=== PATIENT | female | born 1995 | race Caucasian/White ===

== ENCOUNTER 2016-12-03 14:13 | Emergency (ER) | payer OTHER ==
[2016-12-03 14:36] VITALS: BMI 32.1
[2016-12-03] MEDS ORDERED: ONDANSETRON 4 MG/2 ML VIAL IVPB ONE (16:12)
[2016-12-03] MEDS ORDERED: morphine CARPU-JECT 4 MG/1 ML DISP.SYRIN IVPUSH ONE (16:12)
[2016-12-03] MEDS ORDERED: SODIUM CHLORIDE 1,000 ML IV STA (16:12)
--- NOTE | 2016-12-03 16:47 | PDOC ---
History of Present Illness - General History Source: Patient Exam Limitations: No Limitations - History of Present Illness Initial Comments: 12/03/16 16:50 The patient is a 21 year old female, with a significant past medical history of asthma, who presents to the emergency department with abdominal pain, nausea and vomit since this morning. She describes her abdominal pain as localized on the right lower quadrant, without radiation or modifying factors. She notes that she has had 2 episodes of vomit that have been nonbloody and nonbilious. She denies any vaginal bleeding or discharge. She states that she is sexually active with her child's father. She denies history of sexual transmitted diseases. The patient denies chest pain, shortness of breath, headache and dizziness. Denies fever, chills, nausea, vomit, diarrhea and constipation. Denies dysuria, frequency, urgency and hematuria. LMP: Last week Allergies: Walnuts and Almonds Past surgical history: Social history: No alcohol, tobacco or drug use reported <Francisco Javier Keating - Last Filed: 12/03/16 16:49> <Sharona Jones - Last Filed: 12/03/16 21:08> - General History Source: Patient Exam Limitations: No Limitations <Shad Perez - Last Filed: 12/21/16 08:13> - General Chief Complaint: Pain Stated Complaint: ABD PAIN, VOMITING Time Seen by Provider: 12/03/16 15:48 Past History <Francisco Javier Keating - Last Filed: 12/03/16 16:49> <Sharona Jones - Last Filed: 12/03/16 21:08> - Past Medical History Asthma: Yes Cancer: No Cardiac Disorders: No Diabetes: No HTN: No Suicide Attempt (Hx): No Seizures: No Thyroid Disease: No - Reproductive History (#): 1 Para: 0 - Immunization History Immunization Up to Date: No - Psycho/Social/Smoking Cessation Hx Anxiety: No Suicidal Ideation: No Smoking Status: No (DENIES) Smoking History: Never smoked Have you smoked in the past 12 months: No Number of Cigarettes Smoked Daily: 0 Information on smoking cessation initiated: No Hx Alcohol Use: No Drug/Substance Use Hx: No Substance Use Type: None Hx Substance Use Treatment: No <Shad Perez - Last Filed: 12/21/16 08:13> - Past Medical History Allergies/Adverse Reactions: Allergies Allergy/AdvReac Type Severity Reaction Status Date / Time No Known Drug Allergies Allergy Verified 12/03/16 14:32 walnut Allergy Verified 12/03/16 14:32 almonds Allergy Uncoded 12/03/16 14:32 Home Medications: Ambulatory Orders Albuterol Sulfate Inhaler - [Ventolin Hfa Inhaler -] 1 puff IH PRN 12/03/16 Albuterol Sulfate [Proair Respiclick] 1 inh IH PRN 12/03/16 Budesonide/Formeterol Fumarate [SYMBICORT 80/4.5mcg -] 1 puff IH PRN 12/03/16 Fluticasone Prop 0.05% Nasal [Flonase -] 1 spray NS PRN 12/03/16 Ibuprofen 800 mg PO TID #30 tablet 12/03/16 Montelukast Na [Singulair -] 10 mg PO HS 12/03/16 Ondansetron [Zofran *Odt*] 4 mg SL TID #30 od.tablet 12/03/16 Review of Systems - Review of Systems Able to Perform ROS?: Yes Comments:: 12/03/16 16:50 GENERAL/CONSTITUTIONAL: No fever or chills. No weakness. HEAD, EYES, EARS, NOSE AND THROAT: No change in vision. No ear pain or discharge. No sore throat. CARDIOVASCULAR: No chest pain or shortness of breath RESPIRATORY: No cough, wheezing, or hemoptysis. GASTROINTESTINAL: (+) Abdominal pain, nausea, vomiting. No diarrhea or constipation. GENITOURINARY: No dysuria, frequency, or change in urination. MUSCULOSKELETAL: No joint or muscle swelling or pain. No neck or back pain. SKIN: No rash NEUROLOGIC: No headache, vertigo, loss of consciousness, or change in strength/ sensation. ENDOCRINE: No increased thirst. No abnormal weight change HEMATOLOGIC/LYMPHATIC: No anemia, easy bleeding, or history of blood clots. ALLERGIC/IMMUNOLOGIC: No hives or skin allergy. <Francisco Javier Keating - Last Filed: 12/03/16 16:49> *Physical Exam - Vital Signs Last Vital Signs Temp Pulse Resp BP Pulse Ox 99.5 F 97 H 18 135/87 100 12/03/16 14:32 12/03/16 14:32 12/03/16 14:32 12/03/16 14:32 12/03/16 14:32 - Physical Exam Comments: 12/03/16 16:50 GENERAL: Awake, alert, and fully oriented, in no acute distress HEAD: No signs of trauma, normocephalic, atraumatic EYES: PERRLA, EOMI, sclera anicteric, conjunctiva clear ENT: Auricles normal inspection, hearing grossly normal, nares patent, oropharynx clear without exudates. Moist mucosa NECK: Normal ROM, supple, no lymphadenopathy, JVD, or masses LUNGS: No distress, speaks full sentences, clear to auscultation bilaterally HEART: Regular rate and rhythm, normal S1 and S2, no murmurs, rubs or gallops, peripheral pulses normal and equal bilaterally. ABDOMEN: (+) Right lower quadrant tenderness to palpation. Soft, normoactive bowel sounds. No guarding, no rebound. No masses EXTREMITIES: Normal inspection, Normal range of motion, no edema. No clubbing or cyanosis. NEUROLOGICAL: Cranial nerves II through XII grossly intact. Normal speech, normal gait, no focal sensorimotor deficits SKIN: Warm, Dry, normal turgor, no rashes or lesions noted. <Francisco Javier Keating - Last Filed: 12/03/16 16:49> - Vital Signs Last Vital Signs Temp Pulse Resp BP Pulse Ox 99.5 F 84 24 117/70 100 12/03/16 14:32 12/03/16 18:46 12/03/16 18:46 12/03/16 18:46 12/03/16 18:46 <Sharona Jones - Last Filed: 12/03/16 21:08> - Vital Signs Last Vital Signs Temp Pulse Resp BP Pulse Ox 99.5 F 97 H 18 135/87 100 12/03/16 14:32 12/03/16 14:32 12/03/16 14:32 12/03/16 14:32 12/03/16 14:32 <Shad Perez - Last Filed: 12/21/16 08:13> Heart Score/ECG Review #1 ECG reviewed & interpreted by me at: 18:35 12/03/16 18:54 NSR 88 TWI V1-V3, III, no std/jacque, QTC 413 msec, no brugada, no HOCM, no WPW <Shad Perez - Last Filed: 12/21/16 08:13> ED Treatment Course - LABORATORY CBC & Chemistry Diagram: 12/03/16 16:00 12/03/16 16:00 <Petrona Keatinghema Schultee - Last Filed: 12/03/16 16:49> - LABORATORY CBC & Chemistry Diagram: 12/03/16 16:00 12/03/16 16:00 - ADDITIONAL ORDERS Additional order review: Laboratory Results 12/03/16 12/03/16 16:00 16:00 Sodium 138 Potassium 3.8 Chloride 102 Carbon Dioxide 25 Anion Gap 11 BUN 12 Creatinine 0.8 Creat Clearance w eGFR > 60 Random Glucose 95 Calcium 9.0 Total Bilirubin 0.7 D AST 19 ALT 22 Alkaline Phosphatase 132 H D Total Protein 7.7 Albumin 4.3 Lipase 78 Serum , Qual Negative Urine Color Ltyellow Urine Appearance Clear Urine pH 7.0 Urine Protein Negative Urine Glucose (UA) Negative Urine Ketones Negative Urine Blood Negative Urine Nitrite Negative Urine Bilirubin Negative Urine Urobilinogen Negative Ur Leukocyte Esterase Negative 12/03/16 16:00 RBC 5.23 H D MCV 79.6 L MCHC 32.0 RDW 13.2 D MPV 10.3 Neutrophils % 91.1 H D Lymphocytes % 4.5 L D Monocytes % 3.7 L Eosinophils % 0.5 Basophils % 0.2 - RADIOLOGY Radiograph Interpretation: 12/03/16 21:06 Exam: CT/ABDOMEN PELVIS CT W/O CONTR Radiologist's Impression: Findings: The visualized lung base appears unremarkable and the heart is within normal limits in size. Evaluation of the liver, spleen, pancreas, gallbladder, both adrenal glands and the left kidney appear unremarkable. The right kidney is within normal limits in size with a 3 mm nonobstructing stone in its midportion. There is no evidence of hydroureteronephrosis or ureteral stone, bilaterally. There is no evidence of small bowel obstruction. Normal-appearing terminal ileum and appendix. A few tiny nodular densities in the mesentery with mild mesenteric stranding in the mid abdomen. The colon is poorly distended. There are a few diverticula in the splenic flexure of the colon without evidence of acute diverticulitis. There is no gross wall thickening. Normal size anteverted uterus. Partially distended urinary bladder without wall thickening or intraluminal stones. Perirectal and pericecal fat is clear. There is no evidence of free air or free fluid within the abdomen and pelvis. 3.8 x 2.5 cm focal low-attenuation density in the left hemipelvis consistent with the left ovary. Right ovary is not definitely identified. Visualized osseous structures appear intact and the lumbar spine is well aligned. There is minimal central disc bulge and posterior spur formation at T10-T11 level without nerve root impingement. Impression: 3 mm nonobstructing right renal stone. A few diverticula in splenic flexure of the colon without evidence of acute diverticulitis. Normal-appearing appendix. There is mild stranding/mesenteric edema in the mid abdomen with multiple subcentimeter nodular densities consistent with vessels and subcentimeter lymph nodes. There are a few prominent right lower quadrant mesenteric lymph nodes measuring up to 1.4 x 0.9 cm. Findings are suggestive of mesenteric adenitis. Correlate clinically and follow-up is needed. - Medications Given in the ED: ED Medications Discontinued Medications Generic Name Dose Route Start Last Admin Trade Name Freq PRN Reason Stop Dose Admin Sodium Chloride 1,000 mls @ 1,000 mls/hr 12/03/16 16:12 12/03/16 16:44 Normal Saline - IV 12/03/16 17:11 1,000 mls/hr ASDIR STA Administration Morphine Sulfate 4 mg 12/03/16 16:12 12/03/16 17:18 Morphine Injection - IVPUSH 12/03/16 16:13 4 mg ONCE ONE Administration Ondansetron HCl 4 mg 12/03/16 16:12 12/03/16 17:18 Zofran Injection IVPB 12/03/16 16:13 4 mg ONCE ONE Administration <Sharona Jones - Last Filed: 12/03/16 21:08> - LABORATORY CBC & Chemistry Diagram: 12/03/16 16:00 12/03/16 16:00 - RADIOLOGY Radiology Studies Ordered: Category Date Time Status ABDOMEN & PELVIS CT WITH CONTR [CT] Stat CT Scan 12/03/16 16:11 Ordered <Shad Perez - Last Filed: 12/21/16 08:13> Medical Decision Making - Medical Decision Making 12/03/16 16:45 A portion of this note was documented by scribe services under my direction. I have reviewed the details of the note, within reason, and agree with the documentation with the following case summary and management plan written by me. Patient treated in the ED. Nursing notes are reviewed and incorporated into the medical decision-making. Vital signs reviewed. Peripheral IV access obtained by the nurse, laboratory studies are drawn and sent, reviewed and interpreted by myself. Vital Signs Temp Pulse Resp BP Pulse Ox 99.5 F 97 H 18 135/87 100 12/03/16 14:32 12/03/16 14:32 12/03/16 14:32 12/03/16 14:32 12/03/16 14:32 21-year-old female with history of asthma resents with right lower quadrant pain. She states that she woke up with this pain and had 2 episodes of vomiting. Denies fevers, chills. Denies diarrhea. She reports that her last period was one week ago and denies any vaginal bleeding or discharge. She is sexually active with her child's father. Denies history of sexual transmitted diseases. She has a prior history of . Differential includes ruptured ovarian cyst, appendicitis. Within labs, CAT scan and pelvis. Pain control, IV fluids, reassess. 12/03/16 18:55 CBC, BMP 12/03/16 16:00 12/03/16 16:00 CMP Sodium 138 mmol/L (136-145) 12/03/16 16:00 Potassium 3.8 mmol/L (3.5-5.1) 12/03/16 16:00 Chloride 102 mmol/L (98-107) 12/03/16 16:00 Carbon Dioxide 25 mmol/L (21-32) 12/03/16 16:00 Anion Gap 11 (8-16) 12/03/16 16:00 BUN 12 mg/dL (7-18) 12/03/16 16:00 Creatinine 0.8 mg/dL (0.55-1.02) 12/03/16 16:00 Creat Clearance w eGFR > 60 (>60) 12/03/16 16:00 Random Glucose 95 mg/dL (74-106) 12/03/16 16:00 Calcium 9.0 mg/dL (8.5-10.1) 12/03/16 16:00 Total Bilirubin 0.7 mg/dL (0.2-1.0) D 12/03/16 16:00 AST 19 U/L (15-37) 12/03/16 16:00 ALT 22 U/L (12-78) 12/03/16 16:00 Alkaline Phosphatase 132 U/L (45-117) H D 12/03/16 16:00 Total Protein 7.7 g/dl (6.4-8.2) 12/03/16 16:00 Albumin 4.3 g/dl (3.4-5.0) 12/03/16 16:00 Lipase 78 U/L (73-393) 12/03/16 16:00 Serum , Qual Negative 12/03/16 16:00 Urine Test Results Urine Color Ltyellow 12/03/16 16:00 Urine Appearance Clear 12/03/16 16:00 Urine pH 7.0 (5.0-8.0) 12/03/16 16:00 Urine Protein Negative (NEGATIVE) 12/03/16 16:00 Urine Glucose (UA) Negative (NEGATIVE) 12/03/16 16:00 Urine Ketones Negative (NEGATIVE) 12/03/16 16:00 Urine Blood Negative (NEGATIVE) 12/03/16 16:00 Urine Nitrite Negative (NEGATIVE) 12/03/16 16:00 Urine Bilirubin Negative (NEGATIVE) 12/03/16 16:00 Ur Leukocyte Esterase Negative (NEGATIVE) 12/03/16 16:[address], patient become very anxious about the procedure thinking that this was an MRI. Patient felt nervous and anxious and felt nauseous and warm and subsequently syncopized. She was in the chair at that time. No falls. Patient brought back to the ER placed on monitor. The patient soon became better. EKG was demonstrated no showed acute findings. I suspect that she had a vasovagal syncope secondary to her anxiousness. I reassured the patient and the patient is willing to go to CAT scan. She declines any anti-anxiolytics. 12/03/16 19:46 Pt feels much better. She is prepared for CT. Case signed out to oncoming ED attending DR. Miles for further management and disposition. <Shad Perez - Last Filed: 12/21/16 08:13> *DC/Admit/Observation/Transfer - Attestations Scribe Attestion: 12/03/16 16:49 Documentation prepared by Francisco Javier Keating, acting as medical sonographer for Shad Perez MD <Francisco Javier Keating - Last Filed: 12/03/16 16:49> <Sharona Jones - Last Filed: 12/03/16 21:08> <Shad Perez - Last Filed: 12/21/16 08:13> Diagnosis at time of Disposition: Mesenteric adenitis - Discharge Dispostion Disposition: HOME - Prescriptions Prescriptions: Ibuprofen 800 mg PO TID #30 tablet Ondansetron [Zofran *Odt*] 4 mg SL TID #30 od.tablet - Patient Instructions Printed Discharge Instructions: DI for Mesenteric Adenitis-Adult Additional Instructions: take medications as directed. Have plenty of bed rest and fluids. Follow up with your doctor in two days for re-evaluation. - Post Discharge Activity Work/School Note: Back to Work
[2016-12-03 16:51] LABS: BASOPHIL 0.2 % (0-2.0); EOSINOPHIL 0.5 % (0-4.5); MCH 25.5 pg (25.7-33.7); MEAN CELL VOLUME 79.6 fl (80-96); MEAN PLT VOLUME 10.3 fl (7.5-11.1); NEUTROPHILS 91.1 % (42.8-82.8); PLATELET COUNT 189 K/MM3 (134-434); RDW 13.2 % (11.6-15.6); WHITE BLOOD COUNT 12.4 K/mm3 (4.0-10.0)
[2016-12-03 16:52] LABS: URINE APPEARANCE CLEAR; URINE BILIRUBIN NEGATIVE (NEGATIVE); URINE BLOOD NEGATIVE (NEGATIVE); URINE COLOR LTYELLOW; URINE GLUCOSE (UA) NEGATIVE (NEGATIVE); URINE KETONE NEGATIVE (NEGATIVE); URINE LEUK ESTERASE NEGATIVE (NEGATIVE); URINE NITRITE NEGATIVE (NEGATIVE); URINE PROTEIN NEGATIVE (NEGATIVE); URINE UROBILINOGEN NEGATIVE E.U./dl (0.2-1.0)
[2016-12-03 17:15] LABS: ALBUMIN 4.3 g/dl (3.4-5.0); ANION GAP 11 (8-16); CO2 25 mmol/L (21-32); GLUCOSE,RANDOM 95 mg/dL (74-106)
[2016-12-03] MEDS ORDERED: morphine CARPU-JECT 4 MG/1 ML DISP.SYRIN ONE (17:20)
[2016-12-03] MEDS ORDERED: ONDANSETRON 4 MG/2 ML VIAL ONE (17:20)
[2016-12-03 17:21] LABS: ALK PHOS 132 U/L (45-117); BILIRUBIN,TOTAL 0.7 mg/dL (0.2-1.0); COCKROFT - GAULT 180.1235; CREATININE 0.8 mg/dL (0.55-1.02); SGOT/AST 19 U/L (15-37); SGPT/ALT 22 U/L (12-78); TOT PROT 7.7 g/dl (6.4-8.2)
[2016-12-03] MEDS ORDERED: ONDANSETRON *ODT* 4 MG TABLET SL ONE (21:12)
--- NOTE | 2016-12-03 21:15 | PDOC ---
*Physical Exam - Vital Signs Last Vital Signs Temp Pulse Resp BP Pulse Ox 99.5 F 84 24 117/70 100 12/03/16 14:32 12/03/16 18:46 12/03/16 18:46 12/03/16 18:46 12/03/16 18:46 ED Treatment Course - LABORATORY CBC & Chemistry Diagram: 12/03/16 16:00 12/03/16 16:00 - ADDITIONAL ORDERS Additional order review: Laboratory Results 12/03/16 12/03/16 16:00 16:00 Sodium 138 Potassium 3.8 Chloride 102 Carbon Dioxide 25 Anion Gap 11 BUN 12 Creatinine 0.8 Creat Clearance w eGFR > 60 Random Glucose 95 Calcium 9.0 Total Bilirubin 0.7 D AST 19 ALT 22 Alkaline Phosphatase 132 H D Total Protein 7.7 Albumin 4.3 Lipase 78 Serum , Qual Negative Urine Color Ltyellow Urine Appearance Clear Urine pH 7.0 Urine Protein Negative Urine Glucose (UA) Negative Urine Ketones Negative Urine Blood Negative Urine Nitrite Negative Urine Bilirubin Negative Urine Urobilinogen Negative Ur Leukocyte Esterase Negative 12/03/16 16:00 RBC 5.23 H D MCV 79.6 L MCHC 32.0 RDW 13.2 D MPV 10.3 Neutrophils % 91.1 H D Lymphocytes % 4.5 L D Monocytes % 3.7 L Eosinophils % 0.5 Basophils % 0.2 - Medications Given in the ED: ED Medications Discontinued Medications Generic Name Dose Route Start Last Admin Trade Name Freq PRN Reason Stop Dose Admin Sodium Chloride 1,000 mls @ 1,000 mls/hr 12/03/16 16:12 12/03/16 16:44 Normal Saline - IV 12/03/16 17:11 1,000 mls/hr ASDIR STA Administration Morphine Sulfate 4 mg 12/03/16 16:12 12/03/16 17:18 Morphine Injection - IVPUSH 12/03/16 16:13 4 mg ONCE ONE Administration Ondansetron HCl 4 mg 12/03/16 16:12 12/03/16 17:18 Zofran Injection IVPB 12/03/16 16:13 4 mg ONCE ONE Administration *DC/Admit/Observation/Transfer Diagnosis at time of Disposition: Mesenteric lymphadenitis - Discharge Dispostion Disposition: HOME Condition at time of disposition: Stable Admit: No - Prescriptions Prescriptions: Ibuprofen 800 mg PO TID #30 tablet Ondansetron [Zofran *Odt*] 4 mg SL TID #30 od.tablet - Patient Instructions Printed Discharge Instructions: DI for Mesenteric Adenitis-Adult Additional Instructions: take medications as directed. Have plenty of bed rest and fluids. Follow up with your doctor in two days for re-evaluation. - Post Discharge Activity Work/School Note: Back to Work
[2016-12-03] MEDS ORDERED: ONDANSETRON *ODT* 4 MG TABLET ONE (21:29)
[2016-12-03] MEDS ORDERED: IBUPROFEN 400 MG TABLET (FP) PO ONE (21:32)
[2016-12-03 21:48] VITALS: BP 107/64; PULSE 101; TEMP 100.2
--- NOTE | 2016-12-04 11:23 | EKG ---
Test Reason : Blood Pressure : / mmHG Vent. Rate : 088 BPM Atrial Rate : 088 BPM P-R Int : 146 ms QRS Dur : 068 ms QT Int : 342 ms P-R-T Axes : 039 056 007 degrees QTc Int : 413 ms NORMAL SINUS RHYTHM T WAVE ABNORMALITY, CONSIDER ANTERIOR ISCHEMIA ABNORMAL ECG WHEN COMPARED WITH ECG OF 16-DEC-2015 21:16, T WAVE VARIATION Confirmed by KIT TRAYLOR MD ([id number]) on 12/04/2016 11:23:10 AM Referred By: Confirmed By:KIT TRAYLOR MD
== END 2016-12-03 21:49 | disposition home or self-care (01) ==
LOC: JER 14:13
PROC: 3E0337Z Introduction of Electrolytic and Water Balance Substance into Peripheral Vein, Percutaneous Approach (ICD-10-PCS; principal; 2016-12-03)
PROC: 3E033NZ Introduction of Analgesics, Hypnotics, Sedatives into Peripheral Vein, Percutaneous Approach (ICD-10-PCS; 2016-12-03)
PROC: 3E033GC Introduction of Other Therapeutic Substance into Peripheral Vein, Percutaneous Approach (ICD-10-PCS; 2016-12-03)
DX: I88.0 Nonspecific mesenteric lymphadenitis (principal); N20.0 Calculus of kidney
CPT/HCPCS: 36415; 74176-TC; 80053; 81003; 83690; 84703; 85025; 87086; 93005; 93010; 99284-25

== ENCOUNTER 2017-11-02 18:53 | Emergency (ER) | payer OTHER ==
[2017-11-02 19:07] VITALS: BMI 33.0
--- NOTE | 2017-11-02 19:14 | PDOC ---
History of Present Illness - General Chief Complaint: Vaginal Bleeding Stated Complaint: VAGINAL BLEEDING/7 WKS Time Seen by Provider: 11/02/17 19:13 - History of Present Illness Initial Comments: 11/02/17 19:14 Ms. Peña is a 22 yo female w/ pmh of asthma and prior early delivery who presents for evaluation of vaginal bleeding noted today while wiping and in the shower. She reports that her last menstrual period was september 13 and that she believes she is 8 weeks at this time. She currently has an [facility]ATHEREDGE MACHINE OPERATOR appointment scheduled however has not had an initial visit for this . She reports that she has had spotting and passage of small clots today and is concerned as a similar presentation happened with her last at 26 weeks. She delivered via at that time and her son is healthy with asthma today. The patient denies chest pain, shortness of breath, headache and dizziness. Denies fever, chills, nausea, vomit, diarrhea and constipation. Denies dysuria, frequency, urgency and hematuria. Allergies: NKDA Past History - Past Medical History Allergies/Adverse Reactions: Allergies Allergy/AdvReac Type Severity Reaction Status Date / Time No Known Drug Allergies Allergy Verified 11/02/17 19:06 walnut Allergy Verified 11/02/17 19:06 almonds Allergy Uncoded 11/02/17 19:06 Home Medications: Ambulatory Orders Albuterol Sulfate Inhaler - [Ventolin Hfa Inhaler -] 1 puff IH PRN 12/03/16 Acetaminophen [Pain Relief 8Hr] 650 mg PO QID #14 tablet.er 10/25/17 Asthma: Yes Cancer: No Cardiac Disorders: No COPD: No DVT: No Diabetes: No HTN: No Seizures: No Thyroid Disease: No - Reproductive History (#): 1 Para: 0 - Immunization History Immunization Up to Date: No - Suicide/Smoking/Psychosocial Hx Smoking Status: No (DENIES) Smoking History: Never smoked Have you smoked in the past 12 months: No Number of Cigarettes Smoked Daily: 0 Hx Alcohol Use: No Drug/Substance Use Hx: No Substance Use Type: None Hx Substance Use Treatment: No Review of Systems - Review of Systems Comments:: 11/02/17 19:14 GENERAL/CONSTITUTIONAL: No fever or chills. No weakness. HEAD, EYES, EARS, NOSE AND THROAT: No change in vision. No ear pain or discharge. No sore throat. CARDIOVASCULAR: No chest pain or shortness of breath RESPIRATORY: No cough, wheezing, or hemoptysis. GASTROINTESTINAL: No nausea, vomiting, diarrhea or constipation. GENITOURINARY: No dysuria, frequency, or change in urination. MUSCULOSKELETAL: No joint or muscle swelling or pain. No neck or back pain. SKIN: No rash NEUROLOGIC: No headache, vertigo, loss of consciousness, or change in strength/ sensation. ENDOCRINE: No increased thirst. No abnormal weight change HEMATOLOGIC/LYMPHATIC: No anemia, easy bleeding, or history of blood clots. ALLERGIC/IMMUNOLOGIC: No hives or skin allergy. : Bleeding and clots as described *Physical Exam - Vital Signs Last Vital Signs Temp Pulse Resp BP Pulse Ox 98.9 F 87 18 132/72 99 11/02/17 19:03 11/02/17 19:03 11/02/17 19:03 11/02/17 19:03 11/02/17 19:03 - Physical Exam Comments: 11/02/17 19:14 GENERAL: Awake, alert, and fully oriented, in no acute distress HEAD: No signs of trauma, normocephalic, atraumatic EYES: PERRLA, EOMI, sclera anicteric, conjunctiva clear ENT: Auricles normal inspection, hearing grossly normal, nares patent, oropharynx clear without exudates. Moist mucosa NECK: Normal ROM, supple, no lymphadenopathy, JVD, or masses LUNGS: No distress, speaks full sentences, clear to auscultation bilaterally HEART: Regular rate and rhythm, normal S1 and S2, no murmurs, rubs or gallops, peripheral pulses normal and equal bilaterally. ABDOMEN: +Left upper and lower quadrant TTP. Soft, normoactive bowel sounds. No guarding, no rebound. No masses EXTREMITIES: Normal inspection, Normal range of motion, no edema. No clubbing or cyanosis. NEUROLOGICAL: Cranial nerves II through XII grossly intact. Normal speech, normal gait, no focal sensorimotor deficits SKIN: Warm, Dry, normal turgor, no rashes or lesions noted. : No CMT, no masses. Right adnexal tenderness. Closed Os. Scant blood noted in vaginal vault. Yellow fluid noted around os. ED Treatment Course - LABORATORY CBC & Chemistry Diagram: 11/02/17 20:15 11/02/17 20:15 Medical Decision Making - Medical Decision Making 11/02/17 20:05 Ms. Peña is a 22 yo female w/ pmh as described who presents for evaluation of bleeding in . IUP not currently confirmed. Transvaginal US sent for confirmation. UA/Uculture/Beta/type and screen/CBC/CMP/transvaginal US sent for evaluation. 11/02/17 23:25 Patient O+, no need for rhogam administration at this time. Labs grossly wnl as below. US revealed intrauterine gestational sac however unable to confirm live IUP at this time. Patient instructed to follow-up in 2 days with [facility]ACHINE [facility]PERATOR or return to ER for repeat US / beta. Discharging to home. Laboratory Results - last 24 hr 11/02/17 11/02/17 11/02/17 20:00 20:15 20:15 WBC 7.0 D RBC 4.80 Hgb 12.7 Hct 38.7 MCV 80.7 MCH 26.4 MCHC 32.8 RDW 13.9 Plt Count 224 MPV 10.6 Neutrophils % 61.4 D Lymphocytes % 25.1 D Monocytes % 11.1 H D Eosinophils % 1.8 D Basophils % 0.6 Sodium 141 Potassium 4.1 Chloride 107 Carbon Dioxide 26 Anion Gap 8 BUN 10 Creatinine 0.8 Creat Clearance w eGFR > 60 Random Glucose 92 Calcium 9.1 Total Bilirubin 0.4 D AST 36 ALT 52 Alkaline Phosphatase 94 Total Protein 7.5 Albumin 4.2 Beta HCG, Quant 1369.1 Urine Color Straw Urine Appearance Clear Urine pH 7.0 Ur Specific [place] 1.004 Urine Protein Negative Urine Glucose (UA) Negative Urine Ketones Negative Urine Blood 1+ H Urine Nitrite Negative Urine Bilirubin Negative Urine Urobilinogen Negative Ur Leukocyte Esterase Trace Urine WBC (Auto) 2 Urine RBC (Auto) <1 Ur Epithelial Cells Rare Urine Bacteria Rare Urine Mucus Rare Blood Type Antibody Screen 11/02/17 20:15 WBC RBC Hgb Hct MCV MCH MCHC RDW Plt Count MPV Neutrophils % Lymphocytes % Monocytes % Eosinophils % Basophils % Sodium Potassium Chloride Carbon Dioxide Anion Gap BUN Creatinine Creat Clearance w eGFR Random Glucose Calcium Total Bilirubin AST ALT Alkaline Phosphatase Total Protein Albumin Beta HCG, Quant Urine Color Urine Appearance Urine pH Ur Specific [place] Urine Protein Urine Glucose (UA) Urine Ketones Urine Blood Urine Nitrite Urine Bilirubin Urine Urobilinogen Ur Leukocyte Esterase Urine WBC (Auto) Urine RBC (Auto) Ur Epithelial Cells Urine Bacteria Urine Mucus Blood Type O POSITIVE Antibody Screen Negative *DC/Admit/Observation/Transfer Diagnosis at time of Disposition: Vaginal bleeding in patient at less than 20 weeks gestation - Discharge Dispostion Disposition: HOME - Referrals - Patient Instructions Printed Discharge Instructions: DI for Vaginal Bleeding During Additional Instructions: Please return in 2 days to ER or follow-up with FEATHEREDGE MACHINE OPERATOR in 2 days for repeat US and blood tests. Return to ER immediately if any pain, fever, chills, or other concerning symptoms. - Post Discharge Activity
[2017-11-02 20:16] LABS: URINE APPEARANCE CLEAR; URINE BILIRUBIN NEGATIVE (<2.0 mg/dL); URINE BLOOD 1+ (NEGATIVE); URINE COLOR STRAW; URINE GLUCOSE (UA) NEGATIVE (NEGATIVE); URINE KETONE NEGATIVE (NEGATIVE); URINE LEUK ESTERASE TRACE (NEGATIVE); URINE NITRITE NEGATIVE (NEGATIVE); URINE PROTEIN NEGATIVE (NEGATIVE); URINE UROBILINOGEN NEGATIVE mg/dL (0.2-1.0)
[2017-11-02] MEDS ORDERED: SODIUM CHLORIDE 1,000 ML IV STA (20:17)
[2017-11-02 20:19] LABS: EPI CELLS RARE /HPF (FEW); URINE BACTERIA RARE /hpf (NONE SEEN); URINE MUCUS RARE
[2017-11-02 20:26] LABS: BASO % 0.6 % (0-2.0); EOS % 1.8 % (0-4.5); HEMATOCRIT 38.7 % (32.4-45.2); HEMOGLOBIN 12.7 GM/dL (10.7-15.3); LYMPH % 25.1 % (8-40); MCH 26.4 pg (25.7-33.7); MCHC 32.8 g/dl (32.0-36.0); MEAN CELL VOLUME 80.7 fl (80-96); MEAN PLT VOLUME 10.6 fl (7.5-11.1); MONO % 11.1 % (3.8-10.2); NEUT % 61.4 % (42.8-82.8); PLATELET COUNT 224 K/MM3 (134-434); RDW 13.9 % (11.6-15.6)
[2017-11-02 20:45] LABS: ALBUMIN 4.2 g/dl (3.4-5.0); ANION GAP 8 (8-16); BILIRUBIN,TOTAL 0.4 mg/dL (0.2-1.0); BLOOD UREA NITROGEN 10 mg/dL (7-18); CALCIUM 9.1 mg/dL (8.5-10.1); CHLORIDE 107 mmol/L (98-107); CO2 26 mmol/L (21-32); CREATININE 0.8 mg/dL (0.55-1.02); GLUCOSE,RANDOM 92 mg/dL (74-106); POTASSIUM 4.1 mmol/L (3.5-5.1); SGOT/AST 36 U/L (15-37); SGPT/ALT 52 U/L (12-78); SODIUM 141 mmol/L (136-145); TOT PROT 7.5 g/dl (6.4-8.2)
[2017-11-02 20:50] LABS: ALK PHOS 94 U/L (45-117)
--- NOTE | 2017-11-02 21:03 | PDOC ---
Attending Attestation - HPI HPI: 11/02/17 22:10 The patient is a 22 year old female, , with a past medical history of asthma who presents to the ED with vaginal bleeding since earlier. Patient comes into the ED today for vaginal bleeding that she noticed while taking a shower. She thinks she is 8 weeks , but does not currently follow up with SALES AND SERVICE ADVISOR. Patient has a history of prior with delivery at 26 weeks via secondary to vaginal bleeding. Denies fever or chills. Denies chest pain or shortness of breath. Denies abdominal pain, nausea, vomiting, or diarrhea. Denies any other symptoms. Documentation prepared by Terry Mason, acting as medical physicist for Regan Vides MD - Physicial Exam PE: 11/02/17 22:11 Vitals: Triage Vital signs reviewed General Appearance: no acute distress, well nourished well developed, Head: Atraumatic, normocephalic Eyes: Pupils equal reactive round, extraocular movement intact Ears: TM's normal bilaterally; Nose: Nares patent bilaterally;no nasal congestion Throat: Posterior oropharynx without erythema, mucous membranes moist, Neck: Supple;No Nuchal rigidity Chest Wall: Nontender Cardiac: Regular rate and rhythm, no murmurs, no rubs, no gallops, Lungs: Clear to auscultation bilateral, good air movement bilaterally, Abdomen: Soft, nondistended, normal bowel sounds, nontender to palpation Rectal: Exam deferred Extremities: Full range of motion to all extremities, no cyanosis, clubbing, or edema Skin: Warm and dry, no rashes or lesions, no petechiae Neuro: AOX3; Cranial Nerves 2-12 grossly c intact, Strength intact to all extremities, Sensation intact to all extremities, gait normal Psych: normal mood, normal affect <Terry Mason - Last Filed: 11/02/17 22:10> - Resident Resident Name: Ricco Manriquez - ED Attending Attestation I have performed the following: I have examined & evaluated the patient, The case was reviewed & discussed with the resident, I agree w/resident's findings & plan, Exceptions are as noted - Medical Decision Making The patient is a 22 year old female, , with a past medical history of asthma who presents to the ED with vaginal bleeding since earlier. Patient comes into the ED today for vaginal bleeding that she noticed while taking a shower. She thinks she is 8 weeks , but does not currently follow up with SALES AND SERVICE ADVISOR. Patient has a history of prior with delivery at 26 weeks via secondary to vaginal bleeding. Denies fever or chills. Denies chest pain or shortness of breath. Denies abdominal pain, nausea, vomiting, or diarrhea. Denies any other symptoms. + Gestation sac on U/S RH + Likely early vrs threatened miscarriage Less likely ectopic Will have pt. f/u with obgyn saturday. Pt. will return to ED for any severe pain heavy bleeding or for any concerns Findings the need for follow up and strict return instructions d/w pt. <Regan Vides - Last Filed: 11/03/17 01:06>
[2017-11-03 00:25] VITALS: BP 120/80; PULSE 89; TEMP 98.7
== END 2017-11-03 00:25 | disposition home or self-care (01) ==
LOC: JER 18:53
DX: O26.891 Other specified pregnancy related conditions, first trimester (principal); O20.8 Other hemorrhage in early pregnancy; Z3A.01 Less than 8 weeks gestation of pregnancy
CPT/HCPCS: 36415; 76817-TC; 80053; 81003; 81015; 84702; 85025; 86850; 86900; 86901; 87086; 99282-25; J7030

== ENCOUNTER 2017-11-03 19:22 | Emergency (ER) | payer OTHER ==
[2017-11-03 19:32] VITALS: BP 135/76; PULSE 98; TEMP 98.1; BMI 23.7
--- NOTE | 2017-11-03 21:03 | PDOC ---
History of Present Illness - General Chief Complaint: Vaginal Bleeding Stated Complaint: VAGINAL BLEEDING Time Seen by Provider: 11/03/17 20:13 History Source: Patient Exam Limitations: No Limitations - History of Present Illness Initial Comments: 11/03/17 20:57 Patient is a 22-year-old female , LMP?, c/s x 1 at 26 weeks, c/o of worsening vaginal bleeding, and some abdominal pain since this evening. Patient was seen in the emergency room yesterday where she had workup for vaginal bleeding. Was noted on ultrasound to have a gestational sac 5 weeks, with no yolk sac or pole. Bleeding was minimal but today brought a picture of what appeared to be POC's. Patient states she had mild cramping. Denies any dizziness. Patient states she had appointment with her OBS on 11/08/17. EDGING SUPERVISOR: [facility] PMHX: as above PSOCHX: neg ALL: NKDA GENERAL/CONSTITUTIONAL: [No fever or chills. No weakness. No weight change.] HEAD, EYES, EARS, NOSE AND THROAT: [No change in vision. No ear pain or discharge. No sore throat.] CARDIOVASCULAR: [No chest pain or shortness of breath.] RESPIRATORY: [No cough, wheezing, or hemoptysis.] GASTROINTESTINAL: [No nausea, vomiting, diarrhea or constipation. No rectal bleeding.] GENITOURINARY: [No dysuria, frequency, or change in urination.] MUSCULOSKELETAL: [No joint or muscle swelling or pain. No neck or back pain.] SKIN AND BREASTS: [No rash or easy bruising.] NEUROLOGIC: [No headache, vertigo, loss of consciousness, or loss of sensation.] PSYCHIATRIC: [No depression or anxiety.] ENDOCRINE: [No increased thirst. No abnormal weight change.] HEMATOLOGIC/LYMPHATIC: [No anemia, easy bleeding, or history of blood clots.] ALLERGIC/IMMUNOLOGIC: [No hives or skin allergy. No latex allergy.] GENERAL: [The patient is awake, alert, and fully oriented, in no acute distress. ] HEAD: [Normal with no signs of trauma.] EYES: [Pupils equal, round and reactive to light, extraocular movements intact, sclera anicteric, conjunctiva clear.] ENT: [Ears normal, nares patent, oropharynx clear without exudates. Moist mucous membranes.] NECK: [Normal range of motion, supple without lymphadenopathy, JVD, or masses.] LUNGS: [Breath sounds equal, clear to auscultation bilaterally. No wheezes, and no crackles.] HEART: [Regular rate and rhythm, normal S1 and S2 without murmur, rub.] ABDOMEN: [Soft, nontender, normoactive bowel sounds. No guarding, no rebound. No masses.] PELVIC: normal external genitalia, POC's in the vault, os closed EXTREMITIES: [Normal range of motion, no edema. No clubbing or cyanosis. No cords, erythema, or tenderness.] NEUROLOGICAL: [Cranial nerves II through XII grossly intact. Normal speech, normal gait.] PSYCH: [Normal mood, normal affect.] SKIN: [Warm, Dry, normal turgor, no rashes or lesions noted.] Past History - Past Medical History Allergies/Adverse Reactions: Allergies Allergy/AdvReac Type Severity Reaction Status Date / Time No Known Drug Allergies Allergy Verified 11/02/17 19:06 walnut Allergy Verified 11/02/17 19:06 almonds Allergy Uncoded 11/02/17 19:06 Home Medications: Ambulatory Orders Albuterol Sulfate Inhaler - [Ventolin Hfa Inhaler -] 1 puff IH PRN 12/03/16 Acetaminophen [Pain Relief 8Hr] 650 mg PO QID #14 tablet.er 10/25/17 Asthma: Yes Cancer: No Cardiac Disorders: No COPD: No DVT: No Diabetes: No HTN: No Seizures: No Thyroid Disease: No - Reproductive History (#): 1 Para: 0 - Immunization History Immunization Up to Date: No - Suicide/Smoking/Psychosocial Hx Smoking Status: No (DENIES) Smoking History: Never smoked Have you smoked in the past 12 months: No Number of Cigarettes Smoked Daily: 0 Information on smoking cessation initiated: No Hx Alcohol Use: No Drug/Substance Use Hx: No Substance Use Type: None Hx Substance Use Treatment: No *Physical Exam - Vital Signs Last Vital Signs Temp Pulse Resp BP Pulse Ox 98.1 F 98 H 20 135/76 100 11/03/17 19:28 11/03/17 19:28 11/03/17 19:28 11/03/17 19:28 11/03/17 19:28 Medical Decision Making - Medical Decision Making 11/03/17 21:03 otilia is a 22-year-old female , LMP by c/s c/o of worsening vaginal bleeding, and some abdominal pain since this evening after being seen yesterday for threatened . Symptoms consistent with in progress. POC collected and sent to the labs hcg beta quant done rh+ from archive Hcg Beta now [id number] down from 1300 POC found in the vault will send to lab, os closed Findings consistent with spontaneous AB will discharge given all labs for OBS/furniture upholsterer apprentice has appointment on 11/08/17 I discussed the physical exam findings, ancillary test results and final diagnoses with the patient. I answered all of the patient's questions. The patient was satisfied with the care received and felt comfortable with the discharge plan and treatment plan. The Patient agrees to follow up with the primary care physician within 24-72 hours. 11/04/17 03:43 *DC/Admit/Observation/Transfer Diagnosis at time of Disposition: Spontaneous - Discharge Dispostion Disposition: HOME Condition at time of disposition: Stable - Referrals Referrals: ON STAFF,NOT [Primary Care Provider] - - Patient Instructions Printed Discharge Instructions: DI for Miscarriage Additional Instructions: Your Discharge Instructions: You must call primary care physician within 24 hours to arrange follow-up. Return to the Emergency Department with any new, persistent or worsening symptoms, for fever, chills, SOB, dizziness or any other concerning changes that may occur. Follow-up with your OB as scheduled on 11/08/17. - Post Discharge Activity Forms/Work/School Notes: Back to Work
[2017-11-03] MEDS ORDERED: ACETAMINOPHEN 500 MG TABLET (FP) PO ONE (22:18)
[2017-11-03] MEDS ORDERED: ACETAMINOPHEN 325 MG TABLET (FP) ONE (22:20)
--- NOTE | 2017-11-05 13:32 | PATH ---
Surgical Pathology Report Patient Name: JULIANO PEDRAZA Med. Rec. #: [id number] /Age/Gender: 1995 (Age: 22) / F Account: [id number] Location: EMERGENCY ROOM Taken: 11/03/2017 Received: 11/04/2017 Reported: 11/05/2017 Physicians: YASH Fowler PHYSICIAN EMERGENCY DEPT Specimen(s) Received PRODUCTS OF CONCEPTION Clinical History 22 year old female , LMP 09/18/17 with vaginal bleeding Final Diagnosis PRODUCTS OF CONCEPTION, DELIVERY: RARE TROPHOBLASTIC TISSUE ADMIXED WITH BLOOD CLOTS CONSISTENT WITH PRODUCTS OF CONCEPTION. FRAGMENTS OF SQUAMOUS MUCOSA PRESENT. Electronically Signed Merline Erickson M.D. Gross Description Received in formalin, labeled with the patient's name and indicated on the requisition to be products of conception, is a 2.7 x 2.3 x 0.3 cm aggregate of red-brown soft tissue fragments admixed with blood clot. No definite villous tissue or somatic tissue is identified. The specimen is entirely submitted in one cassette. /11/04/2017 [place]11/04/2017
== END 2017-11-04 00:30 | disposition home or self-care (01) ==
LOC: JER 19:22
DX: O26.891 Other specified pregnancy related conditions, first trimester (principal); O03.4 Incomplete spontaneous abortion without complication; Z3A.01 Less than 8 weeks gestation of pregnancy
CPT/HCPCS: 36415; 84702; 88305-TC; 99282-25

== ENCOUNTER 2017-12-02 08:31 | Day surgery (SDC) | payer OTHER ==
[2017-11-28 11:47] VITALS: BMI 32.1
[2017-12-02] MEDS ORDERED: MIDAZOLAM HCL 2 MG/2 ML SINGLE DOSE VIAL ONE (09:35)
[2017-12-02] MEDS ORDERED: SUCCINYLCHOLINE CHLORIDE 200 MG/10 ML VIAL ONE ×2 (09:35→10:01)
[2017-12-02] MEDS ORDERED: fentaNYL CITRATE 250 MCG/5 ML VIAL ONE (09:35)
[2017-12-02] MEDS ORDERED: DESFLURANE GAS 240 ML BOTTLE IH ONE (10:02)
[2017-12-02] MEDS ORDERED: BUPIVACAINE HCL/PF 0.25% (2.5MG/ML) 10 ML VIAL IJ ONE (10:29)
[2017-12-02] MEDS ORDERED: LIDOCAINE HCL 1%, 10 MG/ML (20ML VIAL) NR ONE (10:29)
[2017-12-02] MEDS ORDERED: ceFAZolin SODIUM 1 GM VIAL IVPB ONE (10:48)
[2017-12-02] MEDS ORDERED: LIDOCAINE HCL 1%, 10 MG/ML (20ML VIAL) ONE (11:11)
[2017-12-02] MEDS ORDERED: BUPIVACAINE HCL/PF 0.5% (5MG/ML) 10 ML VIAL ONE (11:12)
[2017-12-02] MEDS ORDERED: MICROFIBRILLAR COLLAGEN 1 GM EACH ONE (11:50)
[2017-12-02] MEDS ORDERED: MICROFIBRILLAR COLLAGEN 1 GM EACH TP ONE (11:51)
[2017-12-02] MEDS ORDERED: LACTATED RINGERS SOLUTION 1,000 ML IV SCH ×2 (12:15→15:30)
--- NOTE | 2017-12-02 12:20 | OP ---
Operative Note - Note: Operative Date: 12/02/17 Pre-Operative Diagnosis: Lt thyroid nodule Operation: Lt thyroidectomy Surgeon: Boubacar Kaur Senior Hris Analyst: Jasbir Soni Anesthesia: General Specimens Removed: Left thyroid Estimated Blood Loss (mls): 10 Fluid Volume Replaced (mls): 800 Operative Report Dictated: Yes
--- NOTE | 2017-12-02 12:21 | SURG ---
Surgery Honing Machine Operator Semiautomatic Note Honing Machine Operator Semiautomatic: Jasbir Soni PA-C Date of Service: 12/02/17 Diagnosis: Left thyroid nodule Procedure: Left thyroidectomy I was present for the entirety of the operative procedure. For further detail, please refer to operative report.
[2017-12-02] MEDS ORDERED: oxyCODONE HCL 5 MG TABLET PO PRN (15:17)
[2017-12-02] MEDS ORDERED: PROMETHAZINE HCL 25 MG/1 ML VIAL IVPB PRN (15:17)
[2017-12-02] MEDS ORDERED: ONDANSETRON 4 MG/2 ML VIAL IVPUSH PRN (15:17)
[2017-12-02 15:34] VITALS: TEMP 98.4
[2017-12-02] MEDS ORDERED: ONDANSETRON 4 MG/2 ML VIAL ONE (16:14)
--- NOTE | 2017-12-02 16:20 | RAPID ---
<Eliane Olvera - Last Filed: 12/02/17 16:30> Physical Examination Vital Signs: Vital Signs Temperature 98.4 F 12/02/17 14:40 Pulse Rate 92 H 12/02/17 15:20 Respiratory Rate 18 12/02/17 15:20 Blood Pressure 137/74 12/02/17 15:20 O2 Sat by Pulse Oximetry (%) 100 12/02/17 15:38 Constitutional: Yes: Anxious, Mild Distress Eyes: Yes: WNL HENT: Yes: WNL Neck: Yes: Other (+horizontal incisional scar, without drainage) Cardiovascular: Yes: Regular Rate and Rhythm Respiratory: Yes: CTA Bilaterally Edema: No Neurological: Yes: Alert, Oriented Rapid Response - Rapid Response Assessment: This is a late entry. Rapid response was called this afternoon around ~3pm, as pt stated that she was unable to breathe. Pt had returned from L partial thyroidectomy for L thyroid nodule. Team attended at bedside. Pt unable to swallow secretions after anesthesia, however resolved quickly. On initial presentation, BP 144/81, pulse rate ~100bpm, however with good sat in high 90's. No intervention was needed at time, pt condition resolved. Physical examination without significant findings- S1, S2, RRR. CTA b/l. Surgical scar without increased drainage. Surgery nursing team notified, call placed to surgeon for update. Will f/u. <Artie Russ - Last Filed: 12/02/17 19:53> Physical Examination Vital Signs: Rapid Response - Rapid Response Plan: of note , rpid was called because patient was coughing when she chocked on her secretions shortly after being moved form recovery to ASU. at time team arrived , she was back to normal base lline , breathing normally.with NL VS. incentive spirometer was recommended . Critical Care Total Critical Care Time (in minutes): 25
[2017-12-02] MEDS ORDERED: ONDANSETRON 4 MG/2 ML VIAL IVPB ONE (16:28)
[2017-12-02 17:53] VITALS: BP 121/75; PULSE 84
--- NOTE | 2017-12-02 19:22 | OP ---
DATE OF OPERATION: 12/02/2017 SURGICAL ATTENDING: Sukhdev Degroot M.D. PREOPERATIVE DIAGNOSIS: Thyroid nodule. POSTOPERATIVE DIAGNOSIS: Thyroid nodule. ANESTHESIA: General endotracheal anesthesia. PROCEDURE: Left hemithyroidectomy and neck ultrasound. DESCRIPTION OF PROCEDURE: The patient was taken into the operating room, placed in a supine position, endotracheally intubated. The eyes were protected. Neck ultrasound was then performed showing a 1-cm left thyroid nodule with no other thyroid nodules and no adenopathy. The patient was then prepped and draped in the usual sterile fashion. Local anesthesia was administered, and a 3.8 cm horizontal incision was made in an upper neck skin crease. This was carried down through subcutaneous tissues and platysma. Subplatysmal fascia raised superior and inferiorly and flap hooks were placed for exposure. The median raphe was incised, and the left sided strap muscles were elevated off the thyroid gland. The recurring laryngeal nerve, superior laryngeal nerve, and parathyroid glands were identified and preserved. The superior, posterior, and inferior attachments of the thyroid gland were transected. The isthmus was transected and in this way the left thyroid lobe was removed. It was inspected and found to have no parathyroid tissue. It was then sent to pathology for evaluation. Hemostasis was achieved with electrocautery and avotene. Note that nerve monitoring was used, and satisfactory signals were seen pre- and post-excision. Hemostasis was assured, and the wound was then closed in 3 layers. Sterile dressings were placed. The patient was then awakened, extubated, and taken to recovery in stable condition. Dr. Degroot, the attending surgeon, was present throughout the entire procedure. SUKHDEV DEGROOT M.D. [id number] MTDD
--- NOTE | 2017-12-03 17:58 | PATH ---
Surgical Pathology Report Patient Name: JULIANO PEDRAZA [facility]. Rec. #: [id number] /Age/Gender: 1995 (Age: 22) / F Account: [id number] Location: [facility] SURGICAL Taken: 12/02/2017 Received: 12/02/2017 Reported: 12/03/2017 Physicians: Boubacar Kaur M.D. Specimen(s) Received LEFT THYROID LOBE Clinical History Thyroid nodule Final Diagnosis LEFT THYROID LOBE, RESECTION: MULTINODULAR GOITER. TWO SMALL REACTIVE LYMPH NODES. Electronically Signed Steven Timmons M.D. Gross Description Received in formalin labeled "left thyroid lobe," is an 11 g, 4.3 x 2.6 x 2.0 cm intact thyroid lobe. The outer capsule is red-brown and smooth. Sectioning reveals multiple colloid nodules. The remaining thyroid parenchyma is red-brown and beefy. No discrete masses are identified. The specimen is entirely and sequentially submitted in 9 cassettes. /12/02/2017 [facility]12/02/2017
== END 2017-12-02 17:40 | disposition home or self-care (01) ==
LOC: JASU-SURG 08:31
PROVIDERS: ATTEND Surgery
PROC: 0GTG0ZZ Resection of Left Thyroid Gland Lobe, Open Approach (ICD-10-PCS; principal; 2017-12-02 10:00)
DX: E04.1 Nontoxic single thyroid nodule (principal)
CPT/HCPCS: 36415; 84702; 88307-TC; 94760

== ENCOUNTER 2018-05-26 11:14 | Emergency (ER) | payer OTHER ==
[2018-05-26 11:20] VITALS: TEMP 97.8; BMI 33.2
--- NOTE | 2018-05-26 11:55 | PDOC ---
History of Present Illness - General Chief Complaint: Pain Stated Complaint: PELVIC PAIN Time Seen by Provider: 05/26/18 11:54 - History of Present Illness Initial Comments: 05/26/18 12:50 The patient is a 22 year old female with a history of Asthma who presents for evaluation of back pain and pelvic pain. The patient reports a 4 day history of sharp pelvic pain that has been intermittent but persistent. She reports some associated sharp left sided back pain that began 2 days ago. She states that the back pain has been persistent and worsens with lying flat prompting her presentation to the ED for further evaluation. She otherwise denies fevers , chills, SOB, chest pain, nausea, vomiting, abdominal pain, vaginal bleeding, vaginal discharge, or changes with urination or bowel movements. She notes that her LMP was 04/26/18. Past History - Past Medical History Allergies/Adverse Reactions: Allergies Allergy/AdvReac Type Severity Reaction Status Date / Time No Known Drug Allergies Allergy Verified 05/26/18 11:17 walnut Allergy Verified 05/26/18 11:17 almonds Allergy Uncoded 05/26/18 11:17 Home Medications: Ambulatory Orders Cyclobenzaprine HCl [Flexeril 10 mg] 10 mg PO ONCE 05/26/18 Meloxicam [Mobic] 15 mg PO HS 05/26/18 Anemia: Yes Asthma: Yes Cancer: No Cardiac Disorders: No CVA: No COPD: No CHF: No DVT: No Dementia: No Diabetes: No GI Disorders: No Disorders: No HTN: No Hypercholesterolemia: No Liver Disease: No Seizures: No Thyroid Disease: No - Reproductive History (#): 1 Para: 0 - Immunization History Immunization Up to Date: No - Suicide/Smoking/Psychosocial Hx Smoking Status: No (DENIES) Smoking History: Never smoked Have you smoked in the past 12 months: No Number of Cigarettes Smoked Daily: 0 Hx Alcohol Use: Yes (OCCAS) Drug/Substance Use Hx: No Substance Use Type: None Hx Substance Use Treatment: No Review of Systems - Review of Systems Comments:: 05/26/18 12:52 Constitutional: No fevers, chills, fatigue, malaise HEENT: No Rhinorrhea, nasal congestion, visual changes Cardiovascular: No chest pain, syncope, palpitations, lightheadedness Respiratory: No Cough, SOB, Hemoptysis, Gastrointestinal: No Abdominal pain, Nausea, Vomiting, Constipation, Diarrhea, Melena Genitourinary: Left Flank pain. Pelvic pain. No Dysuria, Frequency, Urgency, Hesitancy, Hematuria, Musculoskeletal: No Myalgia, arthralgia Skin: No rashes, itching, bruising, pallor Neurologic: No Headache, Dizziness, Numbness, Weakness, or Tingling Psychiatric: No Hallucinations. No SI or HI *Physical Exam - Vital Signs Last Vital Signs Temp Pulse Resp BP Pulse Ox 97.8 F 83 22 H 125/66 97 05/26/18 11:18 05/26/18 11:18 05/26/18 11:18 05/26/18 11:18 05/26/18 11:18 - Physical Exam Comments: 05/26/18 12:52 General Appearance: Nourished. No Apparent Distress HEENT: No Pharyngeal Erythema, Tonsillar Exudate, Tonsillar Erythema Neck: No Cervical Lymphadenopathy Respiratory/Chest: Lungs Clear, Normal Breath Sounds. No Crackles, Rales, Rhonchi, Wheezing Cardiovascular: Regular Rhythm, Regular Rate. No Murmur, Gallops, Rubs Gastrointestinal/Abdominal: Normal Bowel Sounds, Soft. Mild suprapubic tenderness to palpation on exam. No Guarding, Rebound, Pelvic Exam: Normal External Exam. Closed Cervical Os. No CMT or adenxal tenderness. Musculoskeletal: Bilateral CVA Tenderness Extremity: Normal Capillary Refill Integumentary: Normal Color, Dry, Warm Neurologic: Fully Oriented, Alert, Normal Mood/Affect, Normal Response, ED Treatment Course - LABORATORY CBC & Chemistry Diagram: 05/26/18 12:30 05/26/18 12:30 Medical Decision Making - Medical Decision Making 05/26/18 12:54 The patient is a 22 year old female with a history of Asthma who presents for evaluation of back pain and pelvic pain. Differential includes but is not limited to: UTI, Pyelonephritis, Kidney stone, Musculoskeletal, Ovarian pathology, Infectious, Metabolic Derangement. Given the patient's history and physical exam, we will obtain a cbc, cmp, ua, urine preg, urine culture, pelvic US, renal US to evaluate further. We will treat the patient with iv fluids and tylenol and continue to monitor and reassess while here in the ED. 05/26/18 15:52 CBC, cmp, ua, urine preg are unremarkable. Renal US is unremarkable as read by our radiologist. Pelvic US demonstrates a possible hemorrhagic ovarian cyst as read by our radiologist which is likely causing the patient's symptoms. We will treat with toradol and a course of NSAIDS at home. We are comfortable discharging the patient home with METAL CRAFTS TEACHER follow up. We discussed the results, plan, and return precautions with the patient who voiced understanding and is agreeable with the plan. *DC/Admit/Observation/Transfer Diagnosis at time of Disposition: Hemorrhagic cyst - Discharge Dispostion Disposition: HOME Condition at time of disposition: Stable Decision to Admit order: No - Referrals Referrals: Anita Amaya MD [Staff Physician] - - Patient Instructions Printed Discharge Instructions: DI for Ovarian Cyst Additional Instructions: Please return to the ER if you experience concerning or worsening symptoms including worsening difficulty breathing, weakness, or chest pain, abdominal pain, or vaginal bleeding. Your lab results were normal here in the ER. Your US results show that you have a hemorrhagic ovarian cyst that is likely causing your pain. Please use ibuprofen at home twice a day for 1 week to help manage your symptoms. Please call to schedule a follow up appointment with your rail car driver within 2-3 days to discuss your ER visit and further management of your symptoms. - Post Discharge Activity Forms/Work/School Notes: Back to Work
[2018-05-26] MEDS ORDERED: ACETAMINOPHEN 1000 MG/100 ML VIAL (NON FORMULARY) IVPB ONE (12:31)
[2018-05-26] MEDS ORDERED: SODIUM CHLORIDE 1,000 ML IV STA (12:36)
[2018-05-26] MEDS ORDERED: ACETAMINOPHEN INJECTION 100 ML IVPB ONE (12:42)
[2018-05-26 12:49] LABS: BASO % 0.5 % (0-2.0); EOS % 0.9 % (0-4.5); HEMATOCRIT 37.8 % (32.4-45.2); HEMOGLOBIN 12.5 GM/dL (10.7-15.3); MCH 26.5 pg (25.7-33.7); MCHC 33.1 g/dl (32.0-36.0); MEAN PLT VOLUME 10.6 fl (7.5-11.1); NEUT % 70.6 % (42.8-82.8); PLATELET COUNT 196 K/MM3 (134-434); RBC 4.72 M/mm3 (3.60-5.2); RDW 13.5 % (11.6-15.6); WHITE BLOOD COUNT 7.2 K/mm3 (4.0-10.0)
[2018-05-26 13:18] LABS: HCG,QUALITATIVE URINE Negative
--- NOTE | 2018-05-26 13:23 | PDOC ---
Attending Attestation - HPI HPI: 05/26/18 13:42 The patient is a 22 year old female with a history of Asthma who presents to the emergency department for evaluation of 4 days of suprapubic pain and 2 days of back pain. The patient reports sharp pelvic pain that has been intermittent but persistent. She reports sharp left sided back pain which has been persistent and exacerbated with lying flat which promped her presentation to the ED for further evaluation. She notes that her LMP was 04/26/18. The patient denies chest pain, shortness of breath, headache and dizziness. The patient denies fever, chills, nausea, vomit, diarrhea and constipation. The patient denies dysuria, frequency, urgency and hematuria. - Physicial Exam PE: 05/26/18 13:42 Vitals: Triage vital signs reviewed General Appearance: No acute distress, well nourished, well developed Head: Atraumatic Eyes: Pupils equal reactive round, extraocular movement intact Neck: Supple; No nuchal rigidity Chest Wall: Nontender Cardiac: Regular rate and rhythm, no murmurs, no rubs, no gallops Lungs: Clear to auscultation bilateral, good air movement bilaterally Abdomen: Soft, nondistended, normal bowel sounds, nontender to palpation Pelvic: Deferred to Dr. Calixto Extremities: Full range of motion to all extremities, no cyanosis, clubbing, or edema Skin: Warm and dry, no rashes or lesions, no rash, no petechiae Neuro: AOX3; Cranial Nerves 2-12 grossly intact, Strength intact to all extremities, Sensation intact to all extremities, gait normal Psych: Normal mood, normal affect - Medical Decision Making 05/26/18 13:42 Documentation prepared by Elizabeth Sawant, acting as medical office assistant for Regan Vides MD <Elizabeth Sawant - Last Filed: 05/26/18 13:42> - Resident Resident Name: Vitor Calixto - ED Attending Attestation I have performed the following: I have examined & evaluated the patient, The case was reviewed & discussed with the resident, I agree w/resident's findings & plan, Exceptions are as noted - Medical Decision Making Several day history of left-sided suprapubic and low back discomfort No evidence of pyelonephritis no fever no white count Transvaginal ultrasound demonstrates likely hemorrhagic cyst This is more consistent with the patient's presentation We'll recommend short course of NSAIDs THEATRICAL VARIETY AGENT follow-up as well as strict return instructions <Regan Vides - Last Filed: 05/26/18 16:19>
[2018-05-26 13:26] LABS: ALK PHOS 96 U/L (45-117); ANION GAP 6 MMOL/L (8-16); BILIRUBIN,TOTAL 0.7 mg/dL (0.2-1); BLOOD UREA NITROGEN 13 mg/dL (7-18); CALCIUM 8.4 mg/dL (8.5-10.1); CHLORIDE 107 mmol/L (98-107); CO2 27 mmol/L (21-32); CREATININE 0.7 mg/dL (0.55-1.3); GLUCOSE,RANDOM 84 mg/dL (74-106); POTASSIUM 3.9 mmol/L (3.5-5.1); SGOT/AST 12 U/L (15-37); SGPT/ALT 15 U/L (13-61); SODIUM 139 mmol/L (136-145); TOT PROT 7.4 g/dl (6.4-8.2)
[2018-05-26 13:45] LABS: URINE APPEARANCE CLEAR; URINE BILIRUBIN NEGATIVE (<2.0 mg/dL); URINE COLOR YELLOW; URINE GLUCOSE (UA) NEGATIVE (NEGATIVE); URINE KETONE NEGATIVE (NEGATIVE); URINE LEUK ESTERASE NEGATIVE (NEGATIVE); URINE NITRITE NEGATIVE (NEGATIVE); URINE PROTEIN 1+ (NEGATIVE)
[2018-05-26 14:31] LABS: EPI CELLS RARE /HPF (FEW); URINE MUCUS FEW
[2018-05-26] MEDS ORDERED: METHOCARBAMOL 500 MG TABLET PO ONE (15:44)
[2018-05-26] MEDS ORDERED: KETOROLAC TROMETHAMINE 30 MG/1 ML VIAL IVPUSH ONE (15:46)
[2018-05-26] MEDS ORDERED: KETOROLAC TROMETHAMINE 30 MG/1 ML VIAL ONE (16:01)
[2018-05-26] MEDS ORDERED: METHOCARBAMOL 500 MG TABLET ONE (16:01)
[2018-05-26 16:32] VITALS: BP 124/73; PULSE 86
== END 2018-05-26 16:30 | disposition home or self-care (01) ==
LOC: JER 11:14
PROC: 3E0337Z Introduction of Electrolytic and Water Balance Substance into Peripheral Vein, Percutaneous Approach (ICD-10-PCS; principal; 2018-05-26)
PROC: 3E033NZ Introduction of Analgesics, Hypnotics, Sedatives into Peripheral Vein, Percutaneous Approach (ICD-10-PCS; 2018-05-26)
PROC: 3E0333Z Introduction of Anti-inflammatory into Peripheral Vein, Percutaneous Approach (ICD-10-PCS; 2018-05-26)
DX: N83.202 Unspecified ovarian cyst, left side (principal)
CPT/HCPCS: 36415; 76775-TC; 76830-TC; 80053; 81003; 81015; 84703; 85025; 87086; 87491; 87591; 99282-25; J0131; J7030

== ENCOUNTER 2018-08-27 10:19 | Emergency (ER) | payer OTHER ==
[2018-08-27 10:38] VITALS: BP 125/81; PULSE 95; TEMP 99.2; BMI 33.2
--- NOTE | 2018-08-27 12:43 | PDOC ---
History of Present Illness - General Chief Complaint: Cold Symptoms Stated Complaint: COLD SYMPTOMS Time Seen by Provider: 08/27/18 12:18 History Source: Patient Exam Limitations: No Limitations Past History - Travel Traveled outside of the country in the last 30 days: No Close contact w/someone who was outside of country & ill: No - Past Medical History Allergies/Adverse Reactions: Allergies Allergy/AdvReac Type Severity Reaction Status Date / Time No Known Drug Allergies Allergy Verified 08/27/18 10:38 walnut Allergy Verified 08/27/18 10:38 almonds Allergy Uncoded 08/27/18 10:38 Home Medications: Ambulatory Orders Cyclobenzaprine HCl [Flexeril 10 mg] 10 mg PO ONCE 05/26/18 Meloxicam [Mobic] 15 mg PO HS 05/26/18 Anemia: Yes Asthma: Yes Cancer: No Cardiac Disorders: No CVA: No COPD: No CHF: No DVT: No Dementia: No Diabetes: No GI Disorders: No Disorders: No HTN: No Hypercholesterolemia: No Liver Disease: No Seizures: No Thyroid Disease: No - Reproductive History (#): 1 Para: 0 - Immunization History Immunization Up to Date: No - Suicide/Smoking/Psychosocial Hx Smoking Status: No (DENIES) Smoking History: Never smoked Have you smoked in the past 12 months: No Number of Cigarettes Smoked Daily: 0 Information on smoking cessation initiated: No Hx Alcohol Use: No Drug/Substance Use Hx: No Substance Use Type: None Hx Substance Use Treatment: No Review of Systems - Review of Systems Able to Perform ROS?: Yes Is the patient limited Malian proficient: No *Physical Exam - Vital Signs Last Vital Signs Temp Pulse Resp BP Pulse Ox 99.2 F 95 H 18 125/81 98 08/27/18 10:36 08/27/18 10:36 08/27/18 10:36 08/27/18 10:36 08/27/18 10:36 Moderate Sedation - Procedure Monitoring Vital Signs: Procedure Monitoring Vital Signs Temperature 99.2 F 08/27/18 10:36 Pulse Rate 95 H 08/27/18 10:36 Respiratory Rate 18 08/27/18 10:36 Blood Pressure 125/81 08/27/18 10:36 O2 Sat by Pulse Oximetry (%) 98 08/27/18 10:36
== END 2018-08-27 13:21 | disposition left against medical advice (07) ==
LOC: JERFT 10:19
DX: Z53.21 Procedure and treatment not carried out due to patient leaving prior to being seen by health care provider (principal)
CPT/HCPCS: 99281-25